=== PATIENT | male | born 1935 | race Caucasian/White ===

== ENCOUNTER 2016-12-07 09:44 | Emergency (ER) | payer MEDICARE, BC ==
[~2016-12-07] VITALS: Ht 165.1 cm; Wt 72.7 kg
[~2016-12-07 09:44] MED LIST: ADVAIR 100/28 DISKUS IH; ALLEGRA 60MG TA60 MG PO; ARMOUR THYROID120 MG PO; ASPIR-LOW81 MG PO; CEPHALEXIN500 M1 PO; COENZYME Q-1010 MG PO; FISH OIL CONC1000 MG PO; LIPITOR20 MG PO; LISINOPRIL10 MG PO; LOPRESSOR 225 MG/TAB PO; MVI; NIASPAN1000 MG PO; NORCO 325 MG-51 TAB PO; PRILOSEC10 MG PO; PROTONIX 40MG T40 MG PO; TRAVATAN Z 5 ML5 ML OD; TRIAMCINOLONE0.1% TP; UNABLE; ZESTRIL 10MG10 MG PO; systane OP; travatan OP
[2016-12-07 09:48] VITALS: BP 143/70; PULSE 75; TEMP 97.7
== END 2016-12-07 12:04 | disposition home or self-care (01) ==
LOC: COL.ER 09:44
DX: S46.911A Strain of unspecified muscle, fascia and tendon at shoulder and upper arm level, right arm, initial encounter (principal); S01.83XA Puncture wound without foreign body of other part of head, initial encounter; S00.81XA Abrasion of other part of head, initial encounter; S50.811A Abrasion of right forearm, initial encounter; S40.211A Abrasion of right shoulder, initial encounter; S50.312A Abrasion of left elbow, initial encounter; S80.212A Abrasion, left knee, initial encounter; W01.198A Fall on same level from slipping, tripping and stumbling with subsequent striking against other object, initial encounter

== ENCOUNTER 2017-10-26 11:57 | Inpatient (IN) | payer MEDICARE, BC ==
[~2017-10-26] VITALS: Ht 162.6 cm; Wt 66.5 kg
[2017-12-12] VITALS (12 sets, daily range): BP systolic 123–189; BP diastolic 72–97; PULSE 38–94; TEMP 97.5–98.2
[2017-12-12] MEDS ORDERED: ASPIRIN 32325 MG/TAB PO (14:37)
[2017-12-12] MEDS ORDERED: EPA FISH OIL1 SGL PO (14:38)
[2017-12-12] MEDS ORDERED: GLUCOSAMINE & C1 TE1 PO (14:38)
[2017-12-12] MEDS ORDERED: TYLENOL 500MG500 MG PO (14:39)
[2017-12-12] MEDS ORDERED: MULTI VITAMINS1 TAB PO (14:39)
[2017-12-12] MEDS ORDERED: FOLIC ACID0.4 MG PO (14:39)
[2017-12-12] MEDS ORDERED: VITAMIN C500 MG PO (14:40)
[2017-12-12] MEDS ORDERED: FERROUS SU325 MG/TAB PO (14:40)
[2017-12-13 03:51] VITALS: BP 128/74; PULSE 89; TEMP 97.8
[2017-12-13 07:32] VITALS: BP 132/66; PULSE 81; TEMP 97.7
[2017-12-13 12:38] VITALS: BP 143/67; PULSE 85; TEMP 97.6
[2017-12-13 15:23] VITALS: BP 117/61; PULSE 81; TEMP 98.1
[2017-12-13 20:00] VITALS: BP 130/67; PULSE 84; TEMP 98.6
[2017-12-14] VITALS (206 sets, daily range): BP systolic 109–139; BP diastolic 58–77; PULSE 79–106; TEMP 97.3–98.4; O2SAT 88–97
[2017-12-14 06:36] LABS: HEMOGLOBIN 10.9 g/dl (13.5-18.0)
[2017-12-14 13:36] LABS: ALBUMIN 3.1 gm/dL (3.5-5.0); BILIRUBIN,TOTAL 0.7 mg/dL (0.0-1.0); CALCIUM 8.7 mg/dL (8.4-10.2); CREATININE, serum 0.9 mg/dL (0.66-1.25); POTASSIUM 4.1 mmol/L (3.4-5.0); TOTAL PROTEIN 5.8 gm/dL (6.4-8.2)
[2017-12-14 17:07] LABS: COLLECTION METHOD CLEAN CATCH
[2017-12-14 17:16] LABS: PH 6 (5-8); SQUAMOUS EPITHELIAL None Seen /hpf; URINE APPEARANCE Clear; URINE BACTERIA None Seen /hpf; URINE BILIRUBIN Negative (NEGATIVE); URINE BLOOD 3+ (NEGATIVE); URINE COLOR Yellow; URINE GLUCOSE Negative (NEGATIVE); URINE KETONE Negative (NEGATIVE); URINE LEUKOCYTE ESTERASE Negative (NEGATIVE); URINE NITRATE Negative (NEGATIVE); URINE PROTEIN(semi-quant) Negative (NEGATIVE); URINE UROBILINOGEN Negative (NEGATIVE)
[2017-12-15] VITALS (330 sets, daily range): BP systolic 105–147; BP diastolic 63–72; PULSE 72–90; TEMP 97.5–98.7; O2SAT 87–98
[2017-12-15 02:25] LABS: BASO % 0.3 % (0.0-2.0); EOS # 0.1 (0.0-0.7); EOS % 0.5 % (0-4.0); GRAN # 7.5 (1.4-6.5); GRAN % 73.2 % (42.2-75.2); HEMATOCRIT 33.1 % (42.0-52.0); HEMOGLOBIN 11.3 g/dl (13.5-18.0); LYMPH # 1.3 (1.2-3.4); LYMPH % 12.9 % (20.0-51.0); MEAN CELL VOLUME 98 fl (80.0-100.0); MEAN CORPUSCULAR HEMOGLOBIN 33 pg (27.0-31.0); MEAN CORPUSCULAR HGB CONC 34 g/dl (33.0-37.0); MEAN PLATELET VOLUME 11.1 fl (7.4-10.4); MONO # 1.3 (0.1-0.6); MONO % 12.7 % (1.7-9.3); PLATELET COUNT 168 K/mm3 (130-400); RED BLOOD COUNT 3.38 M/mm3 (4.20-5.60); REDCELL DISTRIBUTION WIDTH-CV 13.2 % (11.5-14.5)
[2017-12-15 02:35] LABS: CALCIUM 8.6 mg/dL (8.4-10.2); CREATININE, serum 0.89 mg/dL (0.66-1.25); MAGNESIUM 1.9 mg/dL (1.6-2.3); POTASSIUM 3.8 mmol/L (3.4-5.0)
[2017-12-15 02:46] LABS: TROPONIN-I 0.015 ng/mL (0.000-0.034)
[2017-12-15] MEDS ORDERED: ALLEGRA ODT30 MG PO (06:08)
[2017-12-15] MEDS ORDERED: VENTOLIN0.09 MG IH (06:10)
[2017-12-16] VITALS (7 sets, daily range): BP systolic 128–161; BP diastolic 64–93; PULSE 68–147; TEMP 97.7–98.4
[2017-12-16] MEDS ORDERED: XARELTO10 MG PO (12:52)
[2017-12-16] MEDS ORDERED: TOPROL XL 25MG25 MG PO (12:54)
[2017-12-16] MEDS ORDERED: NORCO 325 MG-7.1 TAB PO (12:55)
[2017-12-16] MEDS ORDERED: ROXICODONE 55 MG/TAB PO (12:56)
[2017-12-17] VITALS (7 sets, daily range): BP systolic 115–175; BP diastolic 64–97; PULSE 73–149; TEMP 97.4–98.5
[2017-12-17 08:34] LABS: BASO % 0.3 % (0.0-2.0); EOS # 0.2 (0.0-0.7); EOS % 2.9 % (0-4.0); GRAN % 75.3 % (42.2-75.2); HEMOGLOBIN 11.6 g/dl (13.5-18.0); LYMPH % 14.4 % (20.0-51.0); MEAN CELL VOLUME 99 fl (80.0-100.0); MEAN CORPUSCULAR HEMOGLOBIN 33 pg (27.0-31.0); MEAN CORPUSCULAR HGB CONC 34 g/dl (33.0-37.0); MEAN PLATELET VOLUME 10.5 fl (7.4-10.4); MONO # 0.5 (0.1-0.6); MONO % 6.8 % (1.7-9.3); PLATELET COUNT 227 K/mm3 (130-400); REDCELL DISTRIBUTION WIDTH-CV 12.8 % (11.5-14.5)
[2017-12-17 08:36] LABS: HEMATOCRIT 34.5 % (42.0-52.0)
[2017-12-17 08:44] LABS: CALCIUM 8.6 mg/dL (8.4-10.2); CREATININE, serum 0.8 mg/dL (0.66-1.25); MAGNESIUM 1.7 mg/dL (1.6-2.3); POTASSIUM 3.6 mmol/L (3.4-5.0)
[2017-12-18] VITALS (7 sets, daily range): BP systolic 126–147; BP diastolic 76–92; PULSE 73–150; TEMP 97–98.4
[2017-12-18 13:07] LABS: CALCIUM 8.9 mg/dL (8.4-10.2); CREATININE, serum 0.79 mg/dL (0.66-1.25); MAGNESIUM 1.8 mg/dL (1.6-2.3); POTASSIUM 4.1 mmol/L (3.4-5.0)
[2017-12-19] VITALS (8 sets, daily range): BP systolic 130–183; BP diastolic 81–97; PULSE 69–91; TEMP 97.7–98
[2017-12-19] MEDS ORDERED: LANOXIN 0.25M0.25 MG PO (09:16)
[2017-12-19] MEDS ORDERED: TOPROL XL 50MG50 MG PO (11:25)
== END 2017-12-19 15:00 | DRG 470 ==
LOC: JCC 12-12 07:30 → ICU 12-14 18:43 → JCC 12-15 16:00
PROVIDERS: Hospitalist; Internal Medicine Cardiovascular Disease; Internal Medicine Pulmonary Disease; Orthopaedic Surgery; Physician Assistant
PROC: 0SR902A Replacement of Right Hip Joint with Metal on Polyethylene Synthetic Substitute, Uncemented, Open Approach (ICD-10-PCS; principal; 2017-12-12 11:30)
DX: M16.11 Unilateral primary osteoarthritis, right hip (principal); E87.1 Hypo-osmolality and hyponatremia; I47.1 Supraventricular tachycardia; J45.909 Unspecified asthma, uncomplicated; E78.00 Pure hypercholesterolemia, unspecified; K21.9 Gastro-esophageal reflux disease without esophagitis; I25.10 Atherosclerotic heart disease of native coronary artery without angina pectoris; I10 Essential (primary) hypertension; R33.9 Retention of urine, unspecified; I95.1 Orthostatic hypotension; Z95.1 Presence of aortocoronary bypass graft
CPT/HCPCS: 99223; 99232-AI; 99233-AI; A9284; C1713; C1776; J0690; J1100; J2250; J2274; J2405; J2704; J2795; J3010; J3475; J7030; J7042; J7120

== ENCOUNTER → 2017-12-01 | Outpatient (CLI) | payer MEDICARE, BC | LOC: COL.LAB 13:50 | DX: Z01.812 Encounter for preprocedural laboratory examination (principal) ==

== ENCOUNTER 2019-01-15 10:51 | Emergency (ER) | payer MEDICARE, BC ==
[~2019-01-15] VITALS: Ht 167.6 cm; Wt 72.7 kg
[~2019-01-15 10:51] MED LIST changes: +ALLEGRA ODT30 MG PO; +ASPIRIN 32325 MG/TAB PO; +EPA FISH OIL1 SGL PO; +FERROUS SU325 MG/TAB PO; +FOLIC ACID0.4 MG PO; +GLUCOSAMINE & C1 TE1 PO; +LANOXIN 0.25M0.25 MG PO; +MULTI VITAMINS1 TAB PO; +NORCO 325 MG-7.1 TAB PO; +ROXICODONE 55 MG/TAB PO; +TOPROL XL 25MG25 MG PO; +TOPROL XL 50MG50 MG PO; +TYLENOL 500MG500 MG PO; +VENTOLIN0.09 MG IH; +VITAMIN C500 MG PO; +XARELTO10 MG PO
[2019-01-15 10:55] VITALS: TEMP 98.1
[2019-01-15 11:19] LABS: HEMATOCRIT 42.7 % (42.0-52.0); HEMOGLOBIN 14.5 g/dl (13.5-18.0); INR 0.9 (0.8-3.0); MEAN CELL VOLUME 99 fl (80.0-100.0); MEAN CORPUSCULAR HEMOGLOBIN 34 pg (27.0-31.0); MEAN CORPUSCULAR HGB CONC 34 g/dl (33.0-37.0); MEAN PLATELET VOLUME 11.1 fl (7.4-10.4); PLATELET COUNT 185 K/mm3 (130-400); PROTHROMBIN TIME 10.8 SECONDS (9.7-12.8)
[2019-01-15 11:22] LABS: PARTIAL THROMBOPLASTIN TIME 29.8 SECONDS (26.0-37.0)
[2019-01-15 11:28] LABS: ALBUMIN 4.5 gm/dL (3.5-5.0); BILIRUBIN,TOTAL 1.3 mg/dL (0.0-1.0); CALCIUM 9.2 mg/dL (8.4-10.2); CREATININE, serum 1.01 (0.66-1.25); MAGNESIUM 1.9 mg/dL (1.6-2.3); POTASSIUM 4.4 mmol/L (3.4-5.0); TOTAL PROTEIN 7.4 gm/dL (6.4-8.2)
[2019-01-15 11:38] LABS: LYMPHOCYTE 14 % (20.0-51.0); MYELOCYTE 2 % (0-0); NEUTROPHILS 78 % (42.0-75.2); PLATELET ESTIMATE NORMAL (NORMAL)
[2019-01-15] MEDS ORDERED: NORCO 325 MG-51 TAB PO (14:53)
[2019-01-15 16:02] VITALS: BP 116/74; PULSE 88
== END 2019-01-15 16:02 | disposition home or self-care (01) ==
LOC: COL.ER 10:51
PROVIDERS: Emergency Medicine
DX: S01.91XA Laceration without foreign body of unspecified part of head, initial encounter (principal); S43.004A Unspecified dislocation of right shoulder joint, initial encounter; I25.10 Atherosclerotic heart disease of native coronary artery without angina pectoris; Z79.01 Long term (current) use of anticoagulants; Z95.1 Presence of aortocoronary bypass graft; W01.0XXA Fall on same level from slipping, tripping and stumbling without subsequent striking against object, initial encounter; Y92.830 Public park as the place of occurrence of the external cause
CPT/HCPCS: J2704; J3010

== ENCOUNTER → 2021-06-22 | Outpatient (CLI) | payer MEDICARE, BC | LOC: COL.RAD 11:08 | DX: Z01.812 Encounter for preprocedural laboratory examination (principal); Z13.6 Encounter for screening for cardiovascular disorders; I71.4 Abdominal aortic aneurysm, without rupture; Z96.641 Presence of right artificial hip joint | CPT/HCPCS: Q9967 ==